=== PATIENT | female | born 1985 | race Two or more races ===

== ENCOUNTER 2020-10-01 21:06 | Emergency (ER) | payer SELFPAY ==
--- NOTE | 2020-10-01 21:43 | NUR ---
ANIBAL WITHOUT BEING TRIAGED, CALLED 3 TIMES AND NO ANSWER
== END 2020-10-01 21:44 | disposition left against medical advice (07) ==
LOC: ER 21:06
DX: Z75.3 Unavailability and inaccessibility of health-care facilities (principal)